=== PATIENT | male | born 2000 | race Caucasian/White ===

== ENCOUNTER 2019-12-25 20:46 | Emergency (ER) | payer OTHER, SELFPAY ==
--- NOTE | 2019-12-25 21:09 | DI.RAD.S_ITS ---
PROCEDURE: XR SHOULDER LT MIN 2V INDICATIONS: trauma TECHNIQUE: 3 views of the shoulder were acquired. COMPARISON: [facility], CR, XR CHEST 1V, 12/25/2019, 21:09. FINDINGS: Bones: There is a comminuted fracture of the left clavicular midshaft. There is inferior displacement of the distal component but one shaft width with overlap of the fracture fragments by approximately 2 cm. No suspicious bony lesions. Visualized ribs appear intact. Soft tissues: No suspicious soft tissue calcifications. IMPRESSION: 1. Comminuted left clavicular shaft fracture. Dictated by: Oscar Archer M.D. on 12/25/2019 at 21:45 Approved by: Oscar Archer M.D. on 12/25/2019 at 21:47
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
[2019-12-25 21:13] VITALS: BP 155/88; PULSE 72; RESP 16; TEMP 36.5; O2SAT 97; BMI 22.7
[2019-12-25 21:20] LABS: Add Manual Diff / Slide Review NO; Basophils Absolute Auto 0 /uL (0-100); Basophils Percent Auto 0.2 % (0-2); Eosinophils Absolute Auto 0 /uL (0-450); Eosinophils Percent Auto 0.2 % (2-4); Hematocrit 44.9 % (41-53); Hemoglobin 15.5 g/dL (13.5-17.5); Lymphocytes Absolute Auto 1100 /uL (1100-4500); Lymphocytes Percent Auto 8.1 % (25-40); Mean Corpuscular HGB Conc 34.5 % (30-36); Mean Corpuscular Hemoglobin 28.9 PG (26-34); Mean Corpuscular Volume 83.8 fL (80-100); Monocytes Absolute Auto 800 /uL (0-900); Monocytes Percent Auto 6.4 % (3-14); Neutrophils Absolute Auto 11300 /uL (1500-7000); Neutrophils Percent Auto 85.1 % (50-75); Platelet Count 309 X10^3/uL (150-400); Red Blood Cell Count 5.36 X10^6/uL (4.5-5.9); Red Cell Distribution Width 12.4 % (11.6-14.8); White Blood Cell Count 13.2 X10^3/uL (4.5-11.0)
[2019-12-25] MEDS: KETOROLAC 60 MG/2 ML VIAL 15 MG IV (21:21)
[2019-12-25 21:30] LABS: Alanine Aminotransferase 20 IU/L (<50); Albumin Globulin Ratio 1.5 (1.0-2.8); Alkaline Phosphatase 100 U/L (38-126); Aspartate Aminotransferase 40 IU/L (17-59); BUN Creatinine Ratio 16.1 (6-22); Bilirubin Total 0.6 mg/dL (0.2-1.3); Blood Urea Nitrogen 15 mg/dL (9-20); Calcium 9.7 mg/dL (8.4-10.2); Carbon Dioxide 26 mmol/L (22-32); Chloride 103 mmol/L (98-107); Estimated Glomerular Filt Rate > 60.0 mL/min (>60); Globulin 3.4 g/dL (1.7-4.1); Glucose 99 mg/dL (70-100); HEMOLYSIS 17 (0-50); Lipase 70 U/L (23-300); Potassium 3.7 mmol/L (3.4-5.1); Sodium 139 mmol/L (137-145); Total Protein 8.4 g/dL (6.3-8.2)
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
[2019-12-25] MEDS: OXYCODONE/APAP 5/325 PREPACK 1 BOTTLE MISC (22:20)
[2019-12-25] MEDS: OXYCODONE/ACETAMINOPHEN 5/325 TABLET 1 TAB PO (22:20)
[2019-12-25 22:40] VITALS: BP 138/81; PULSE 70; O2SAT 97
== END 2019-12-25 22:54 | disposition home or self-care (01) ==
PROVIDERS: Emergency Provider Emergency Medicine
DX: S42.022A Displaced fracture of shaft of left clavicle, initial encounter for closed fracture (principal); S16.1XXA Strain of muscle, fascia and tendon at neck level, initial encounter; V29.9XXA Motorcycle rider (driver) (passenger) injured in unspecified traffic accident, initial encounter
CPT/HCPCS: 36415; 71045; 72125; 73030; 80053; 83690; 85025; 96374; 99285; J1885